=== PATIENT | female | born 1970 | race Caucasian/White ===

== ENCOUNTER 2018-11-12 23:05 | Observation (INO) | payer BC ==
--- NOTE | 2018-11-12 23:30 | ED ---
Chest Pain HPI - General Chief Complaint: Chest Pain Stated Complaint: Chest Pain Time Seen by Provider: 11/12/18 23:13 Source: patient, EMS, RN notes reviewed, old records reviewed Mode of arrival: EMS Limitations: no limitations - History of Present Illness Initial Comments: This is a 48-year-old female the ER for evaluation. Patient presented ER for evasive chest pain chest pain started just prior to arrival. Patient suffers from MS, no significant risk factors for heart disease no prior history of heart or chest pain. Patient states she is going through menopause currently does get some sweats. Her wound today and became is very diaphoretic no shortness of breath shortly after in express chest pain. Just feels much improved now than it was then. Left-sided chest pain right jaw. No significant shortness of breath MD Complaint: chest pain -: hour(s) Onset: during rest Pain Location: substernal Pain Radiation: none Severity: mild Severity scale (1-10): 3 Quality: tightness Consistency: constant Improves With: nothing Worsens With: exertion Context: recent illness Anginal Symptoms: dyspnea Treatments Prior to Arrival: none - Related Data Home Medications Medication Instructions Recorded Confirmed Aspirin EC [Ecotrin Low Dose] 81 mg PO DAILY 11/12/18 11/12/18 Baclofen [Lioresal] 10 mg PO QID 11/12/18 11/12/18 Cholecalciferol [Vitamin D3 (25 5,000 unit PO DAILY 11/12/18 11/12/18 Mcg = 1000 Iu)] Cyanocobalamin (Vitamin B-12) 1,000 mcg PO DAILY 11/12/18 11/12/18 [Vitamin B-12] Gabapentin 600 mg PO TID 11/12/18 11/12/18 Glatiramer Acetate [Copaxone] 40 mg SQ MOWEFR 11/12/18 11/12/18 Methylphenidate HCl 20 mg PO DAILY 11/12/18 11/12/18 [Methylphenidate HCl ER] Methylphenidate HCl [Ritalin] 10 mg PO BID 11/12/18 11/12/18 Oxybutynin Chloride [Ditropan XL] 10 mg PO DAILY 11/12/18 11/12/18 buPROPion XL [Wellbutrin XL] 150 mg PO DAILY 11/12/18 11/12/18 Allergies Allergy/AdvReac Type Severity Reaction Status Date / Time No Known Allergies Allergy Verified 11/12/18 23:25 Review of Systems ROS Statement: Those systems with pertinent positive or pertinent negative responses have been documented in the HPI. ROS Other: All systems not noted in ROS Statement are negative. 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 Mother Family Medical History: No Reported History Additional Family Medical History / Comment(s): Mother is healthy General Exam General appearance: alert, in no apparent distress Head exam: Present: atraumatic, normocephalic, normal inspection Eye exam: Present: normal appearance, EOMI. Absent: scleral icterus, conjunctival injection, periorbital swelling ENT exam: Present: normal exam, mucous membranes moist Neck exam: Present: normal inspection. Absent: tenderness, meningismus, lymphadenopathy Respiratory exam: Present: normal lung sounds bilaterally. Absent: respiratory distress, wheezes, rales, rhonchi, stridor Cardiovascular Exam: Present: regular rate, normal rhythm, normal heart sounds. Absent: systolic murmur, diastolic murmur, rubs, gallop, clicks GI/Abdominal exam: Present: soft, normal bowel sounds. Absent: distended, tenderness, guarding, rebound, rigid Extremities exam: Present: normal inspection, full ROM, normal capillary refill. Absent: tenderness, pedal edema, joint swelling, calf tenderness Back exam: Present: normal inspection Neurological exam: Present: alert, oriented X3, CN II-XII intact Psychiatric exam: Present: normal affect, normal mood Skin exam: Present: warm, dry, intact, normal color. Absent: rash Course Vital Signs 11/12/18 11/12/18 11/13/18 23:07 23:16 00:30 Temperature 98.1 F 98 F Pulse Rate 64 57 L Pulse Rate [ 67 [employer] ] Respiratory 18 16 Rate Blood Pressure 136/78 119/59 O2 Sat by Pulse 98 97 Oximetry 11/13/18 11/13/18 11/13/18 01:49 06:09 07:18 Temperature 98 F Pulse Rate 64 63 71 Pulse Rate [ [employer] ] Respiratory 16 16 16 Rate Blood Pressure 117/59 112/60 112/60 O2 Sat by Pulse 98 100 100 Oximetry 11/13/18 11/13/18 11/13/18 09:16 11:40 12:06 Temperature 98 F Pulse Rate 63 61 61 Pulse Rate [ [employer] ] Respiratory 16 18 18 Rate Blood Pressure 139/80 132/64 132/64 O2 Sat by Pulse 99 97 97 Oximetry - Reevaluation(s) Reevaluation #1: 11/13/18 01:13 Medical record is reviewed Reevaluation #2: 11/13/18 01:13 Patient still with episodic chest pain Chest Pain MDM - MDM 48 female the ER for evasive chest pain anterior chest pain. Patient has persistent chest pain currently episode was preceded by diaphoresis and radiati ng to right jaw. We'll admit for cardiac observation Critical Care Time Critical Care Time: Yes Total Critical Care Time: 31 Disposition Clinical Impression: Chest pain Disposition: ADMITTED IP TO THIS HOSP Condition: Undetermined Is patient prescribed a controlled substance at d/c from ED?: No
[2018-11-13 00:03] LABS: Basophils % (A) 1 %; Eosinophils # (A) 0.2 k/uL (0-0.7); Eosinophils % (A) 3 %; HCT 33.7 % (34.0-46.0); HGB 10.6 gm/dL (11.4-16.0); Lymphocytes # (A) 2.3 k/uL (1.0-4.8); Lymphocytes % (A) 33 %; MCH 28.5 pg (25.0-35.0); MCHC 31.4 g/dL (31.0-37.0); MCV 90.6 fL (80.0-100.0); Mean Platelet Volume 8.1; Monocytes # (A) 0.3 k/uL (0-1.0); Monocytes % (A) 4 %; Neutrophils # (A) 3.9 k/uL (1.3-7.7); Neutrophils % (A) 58 %; Platelet Count 235 k/uL (150-450); RBC 3.72 m/uL (3.80-5.40); RDW 13.6 % (11.5-15.5); WBC 6.8 k/uL (3.8-10.6)
--- NOTE | 2018-11-13 00:05 | XR ---
EXAM: XR Chest, 2 Views CLINICAL HISTORY: Chest pain TECHNIQUE: Frontal and lateral views of the chest. COMPARISON: None. FINDINGS: Lungs: Unremarkable. No consolidation. Pleural space: No pneumothorax. No pleural effusion. Heart: Cardiomediastinal silhouette is are unremarkable. Mediastinum: See above. Bones/joints: Osteopenia. Alignment of the thoracic spine is unremarkable. Comment the ribs are unremarkable. IMPRESSION: Osteopenia. No active disease.
[2018-11-13 00:16] LABS: Albumin 4.2 g/dL (3.5-5.0); Calcium 9.4 mg/dL (8.4-10.2); Magnesium 1.8 mg/dL (1.6-2.3); Potassium 3.9 mmol/L (3.5-5.1); Total Bilirubin 0.1 mg/dL (0.2-1.3); Total Protein 6.9 g/dL (6.3-8.2)
[2018-11-13 00:18] LABS: Partial Thromboplastin Time 25.3 sec (22.0-30.0); Prothrombin Time 10.3 sec (9.0-12.0)
[2018-11-13] MEDS ORDERED: ASPIRIN 81 MG PO STA (01:13)
[2018-11-13] MEDS ORDERED: NITROGLYCERIN SL TABS 0.4 MG TAB SUBLINGUAL PRN (01:13)
--- NOTE | 2018-11-13 01:51 | P.HPIM ---
History of Present Illness H&P Date: 11/13/18 Chief Complaint: Chest pain The patient is a 48-year-old female with a past medical history of multiple sclerosis, antiphospholipid syndrome and GERD that presents to the ER via EMS with chief complaint of chest pain. Apparently the patient began having substernal chest pressure at approximately 10 PM last evening after dinner while attempting to change into her pajamas. She describes 8 out of 10 sharp and and heavy sensation with radiation into her right neck and jaw with associated diaphoresis, flushes and nausea, she denied any shortness of breath lower extremity swelling axilla was normal nocturnal dyspnea. She proceeded to take 4 baby aspirin at home and on route was given nitroglycerin which relieved her discomfort. Patient denies feeling any sensations like this previously, she reports that was quite different from her MS hug or GERD flares. The patient is a former smoker with a 35+ pack year history that quit 2 years ago. In the ER she had a comprehensive workup, chest x-ray showed no acute disease only osteopenia, EKG showed sinus mechanism without any suggestion of acute ischemia. WBC count 6.8 hemoglobin 10.6 serum sodium 140 potassium 3.9 and creatinine 0.90. Troponin less than 0.012, NT proBNP 65. 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 History of Any Multi-Drug Resistant Organisms: None Reported Past Surgical History: Cholecystectomy, Hysterectomy, Joint Replacement, Tubal Ligation Past Psychological History: No Psychological Hx Reported Smoking Status: Former smoker Past Alcohol Use History: Occasional Past Drug Use History: None Reported Medications and Allergies Home Medications Medication Instructions Recorded Confirmed Type Aspirin EC [Ecotrin Low Dose] 81 mg PO DAILY 11/12/18 11/12/18 History Baclofen [Lioresal] 10 mg PO QID 11/12/18 11/12/18 History Cholecalciferol [Vitamin D3 (25 5,000 unit PO DAILY 11/12/18 11/12/18 History Mcg = 1000 Iu)] Cyanocobalamin (Vitamin B-12) 1,000 mcg PO DAILY 11/12/18 11/12/18 History [Vitamin B-12] Gabapentin 600 mg PO TID 11/12/18 11/12/18 History Glatiramer Acetate [Copaxone] 40 mg SQ MOWEFR 11/12/18 11/12/18 History Methylphenidate HCl 20 mg PO DAILY 11/12/18 11/12/18 History [Methylphenidate HCl ER] Methylphenidate HCl [Ritalin] 10 mg PO BID 11/12/18 11/12/18 History Oxybutynin Chloride [Ditropan XL] 10 mg PO DAILY 11/12/18 11/12/18 History buPROPion XL [Wellbutrin Xl] 150 mg PO DAILY 11/12/18 11/12/18 History Allergies Allergy/AdvReac Type Severity Reaction Status Date / Time No Known Allergies Allergy Verified 11/12/18 23:25 Physical Exam Vitals: Vital Signs Temp Pulse Pulse Resp BP Pulse Ox 11/13/18 00:30 98 F 57 L 16 119/59 97 11/12/18 23:16 67 11/12/18 23:07 98.1 F 64 18 136/78 98 Intake and Output 11/12/18 11/12/18 11/13/18 14:59 22:59 06:59 Other: Weight 69.853 kg Constitutional: No acute distress, conversant, pleasant Eyes: Anicteric sclerae, moist conjunctiva, no lid-lag, PERRLA ENMT: NC/AT,Oropharynx clear, no erythema, exudates Neck:Supple, FROM, no masses, or JVD, No carotid bruits; No thyromegaly Lungs: Clear to auscultation, Clear to percussion, Normal respiratory effort, no accessory muscle use Cardiovascular: Heart regular in rate and rhythm, No murmurs, gallops, or rubs no peripheral edema Abdominal: Soft Nontender, nom distended, no guarding, no rebound or rigidity, Normoactive bowel sounds No hepatomegaly, No splenomegaly, No palpable mass No abdominal wall hernia noted Skin: Normal temperature, tone, texture, turgor, No induration No subcutaneous nodules, No rash, lesions, No ulcers Extremities:No digital cyanosis No clubbing, Pedal pulses intact and symmetrical Radial pulses intact and symmetrical Normal gait and station, No calf tenderness Psychiatric: Alert and oriented to person, place and time, Appropriate affect Intact judgement Neuro: Muscles Strength 5/5 in all 4 extremities, Sensation to light touch grossly present throughout, Cranial nerves II-XII grossly intact. No focal sensory deficits Results CBC & Chem 7: 11/12/18 23:28 11/12/18 23:28 Labs: Abnormal Lab Results - Last 24 Hours (Table) 11/12/18 11/12/18 Range/Units 23:28 23:28 RBC 3.72 L (3.80-5.40) m/uL Hgb 10.6 L (11.4-16.0) gm/dL Hct 33.7 L (34.0-46.0) % Total Bilirubin 0.1 L (0.2-1.3) mg/dL Assessment and Plan (1) Chest pain Current Visit: Yes Status: Acute Code(s): R07.9 - CHEST PAIN, UNSPECIFIED SNOMED Code(s): 06305815 (2) Multiple sclerosis Current Visit: Yes Status: Chronic Code(s): G35 - MULTIPLE SCLEROSIS SNOMED Code(s): 00554103 (3) Antiphospholipid syndrome Current Visit: Yes Status: Chronic Code(s): D68.61 - ANTIPHOSPHOLIPID SYNDROME SNOMED Code(s): 90861823 (4) Mild anemia Current Visit: Yes Status: Acute Code(s): D64.9 - ANEMIA, UNSPECIFIED SNOMED Code(s): 729810254 (5) GERD (gastroesophageal reflux disease) Current Visit: Yes Status: Chronic Code(s): K21.9 - GASTRO-ESOPHAGEAL REFLUX DISEASE WITHOUT ESOPHAGITIS SNOMED Code(s): 657905173 Plan: The patient placed in observation anticipate a less than 2 midnight stay to rule out ACS after presenting with chest pain, initial workup with EKG and troponins are negative for any suggestion of acute ischemia, we'll continue to trend cardiac enzymes, order echocardiogram and consult cardiology for further recommendations. CODE STATUS: Full code Anticipated discharge: 1-[address]: Home Discussed plan of care with; patient and her Prophylaxis SCDs
[2018-11-13 06:31] LABS: Cholesterol 154 mg/dL (<200); HDL Cholesterol 44 mg/dL (40-60); LDL Cholesterol,Calculated 73 mg/dL (0-99); Triglycerides 187 mg/dL (<150)
[2018-11-13] MEDS: SODIUM CHLORIDE 0.9% 1,000 ML IV SCH ×2 (07:00→14:29)
[2018-11-13] MEDS ORDERED: OXYBUTYNIN 10 MG TAB.ER.24 PO SCH (09:00)
[2018-11-13] MEDS ORDERED: CHOLECALCIFEROL 1,000 UNIT TAB PO SCH (09:00)
[2018-11-13] MEDS ORDERED: CYANOCOBALAMIN 500 MCG TAB PO SCH (09:00)
[2018-11-13] MEDS ORDERED: Glatiramer Acetate [Copaxone] SQ SCH (09:00)
[2018-11-13] MEDS ORDERED: METOPROLOL TARTRATE 25 MG TAB PO SCH (09:00)
[2018-11-13] MEDS ORDERED: buPROPion XL 150 MG TAB.ER.24H PO SCH (09:00)
[2018-11-13] MEDS: GABAPENTIN 300 MG CAP PO SCH ×2 (09:12→16:23)
[2018-11-13] MEDS: BACLOFEN 10 MG TAB PO SCH ×3 (09:13→16:33)
[2018-11-13] MEDS ORDERED: SODIUM CHLORIDE 0.9% 1,000 ML in EMPTY BAG 1 BAG IV ONE (10:41)
[2018-11-13] MEDS ORDERED: ALPRAZolam 0.5 MG TAB PO PRN (10:41)
[2018-11-13] MEDS ORDERED: ALPRAZolam 0.25 MG TAB PO PRN (10:41)
[2018-11-13] MEDS ORDERED: ATORVASTATIN 80 MG TAB PO STA (10:41)
--- NOTE | 2018-11-13 11:26 | ECHOF ---
Referral Reason:chest pain MEASUREMENTS -------- HEIGHT: 165.1 cm WEIGHT: 74.4 kg BP: 112/60 RVIDd: 3.1 cm (< 3.3) IVSd: 0.8 cm (0.6 - 1.1) LVIDd: 4.3 cm (3.9 - 5.3) LVPWd: 0.9 cm (0.6 - 1.1) IVSs: 1.4 cm LVIDs: 3.0 cm LVPWs: 1.6 cm LA Diam: 3.2 cm (2.7 - 3.8) LAESV Index (A-L): 27.67 ml/m Ao Diam: 2.9 cm (2.0 - 3.7) AV Cusp: 1.9 cm (1.5 - 2.6) MV EXCURSION: 18.612 mm (> 18.000) MV EF SLOPE: 68 mm/s (70 - 150) EPSS: 0.3 cm MV E Onel: 0.75 m/s MV DecT: 260 ms MV A Onel: 0.69 m/s MV E/A Ratio: 1.09 RAP: 5.00 mmHg RVSP: 24.33 mmHg TAPSE: 22.49 mm FINDINGS -------- Resting bradycardia (HR<60bpm). This was a technically good study. The left ventricular size is normal. Left ventricular wall thickness is normal. Overall left vent ricular systolic function is normal with, an EF between 60 - 65 %. The diastolic filling pattern is normal for the age of the patient 9.57. The right ventricle is normal in size. Normal LA size by volume 22+/-6 ml/m2. The right atrium is normal in size. Interatrial and interventricular septum intact. The aortic valve is trileaflet and appears structurally normal. The mitral valve is normal. Mild tricuspid regurgitation present. Right ventricular systolic pressure is normal at < 35 mmHg. Trace/mild (physiologic) pulmonic regurgitation. The aortic root size is normal. Normal inferior vena cava with normal inspiratory collapse consistent with estimated right atrial pre ssure of 5 mmHg. There is no pericardial effusion. CONCLUSIONS -------- 1. Resting bradycardia (HR<60bpm). 2. This was a technically good study. 3. The left ventricular size is normal. 4. Left ventricular wall thickness is normal. 5. Overall left ventricular systolic function is normal with, an EF between 60 - 65 %. 6. The diastolic filling pattern is normal for the age of the patient 9.57 7. The right ventricle is normal in size. 8. Normal LA size by volume 22+/-6 ml/m2. 9. The right atrium is normal in size. 10. Interatrial and interventricular septum intact. 11. The aortic valve is trileaflet and appears structurally normal. 12. The mitral valve is normal. 13. Mild tricuspid regurgitation present. 14. Right ventricular systolic pressure is normal at < 35 mmHg. 15. Trace/mild (physiologic) pulmonic regurgitation. 16. The aortic root size is normal. 17. Normal inferior vena cava with normal inspiratory collapse consistent with estimated right atrial pressure of 5 mmHg. 18. There is no pericardial effusion. CHECKROOM CHIEF: Roma Mccoy RDCS
[2018-11-13] MEDS ORDERED: IV FLUID CONTINUATION 1,000 ML IV ONE (12:40)
--- NOTE | 2018-11-13 12:45 | P.CRDCN ---
History of Present Illness History of present illness: This is a pleasant 48-year-old female past medical history significant for multiple sclerosis, gastroesophageal reflux disease and chronic pain syndrome. She has a former smoker she quit 2 years ago. We have been asked to see her in consultation secondary to chest discomfort. She denies prior history of coronary artery disease and does not follow with a roundsman for any reason. She states yesterday she had a couple of different episodes of symptoms starting first in the afternoon with feeling quite lightheaded. She did not feel like the room was spinning she just felt she needed to brace herself. This episode was very brief and seemed to pass on its own. In the early evening she was walking through her house he became acutely diaphoretic with no specific cause. She was just walking at a normal pace down the hallway. The evening while she was laying down and referred bed she started feeling a discomfort in the left precordial region described as a heavy pressure sensation that radiated up into the jaw. The time of this started she was changing and examined getting ready for bed. She took 4 baby aspirin and called EMS. Upon arrival she was continuing to have chest discomfort in the gave her sublingual nitroglycerin which did relieve the intensity but she continues to feel pressure in the chest. EKG reveals sinus mechanism heart rate of 64 with T-wave inversion in the anterior leads. No old EKG for comparison. Chest x-ray is negative for an acute cardiopulmonary process. Laboratory data reviewed, WBC 6.8, hemoglobin 10.6, platelets 235, d-dimer 0.27, sodium 140, potassium 3.9, creatinine 0.8, magnesium 1.8, cardiac enzymes negative 3, proBNP 65, LDL 73. Current cardiac medications include aspirin 81 mg daily. At the time of my exam: CONSTITUTIONAL: Denies fever. Denies chills. EYES: Denies blurred vision. Denies vision changes. Denies eye pain. EARS, NOSE, MOUTH & THROAT: Denies headache. Denies sore throat. Denies ear pain. CARDIOVASCULAR: Complains of chest pain. Denies shortness of breath. Denies orthopnea. Denies PND. Denies palpitations. RESPIRATORY: Denies cough. GASTROINTESTINAL: Denies abdominal pain. Denies diarrhea. Denies constipation. Denies nausea. Denies vomiting. MUSCULOSKELETAL: Denies myalgias. INTEGUMENTARY: Denies pruitis. Denies rash. NEUROLOGIC: Denies numbness. Denies tingling. Denies weakness. PSYCHIATRIC: Denies anxiety. Denies depression. ENDOCRINE: Denies fatigue. Denies weight change. Denies polydipsia. Denies polyurina. GENITOURINARY: Denies burning, hematuria or urgency with micturation. HEMATOLOGIC: Denies history of anemia. Denies bleeding. Blood pressure 132/64 heart rate 61 afebrile maintaining oxygen saturation on room air GENERAL: This is a 48-year-old female in no apparent distress at the time of my examination. HEENT: Head is atraumatic, normocephalic. Pupils are equal, round. Sclerae anicteric. Conjunctivae are clear. Mucous membranes of the mouth are moist. Neck is supple. There is no jugular venous distention. No carotid bruit is heard. LUNGS: Clear to auscultation no wheezes, rales or rhonchi. No chest wall tenderness is noted on palpation or with deep breathing. HEART: Regular rate and rhythm without murmurs, rubs or gallops. S1 and S2 heard. ABDOMEN: Soft, nontender. Bowel sounds are heard. No organomegaly noted. EXTREMITIES: No evidence of peripheral edema and no calf tenderness noted. VASCULAR: Radial and dorsalis pedis pulses palpated, no evidence of clubbing. NEUROLOGIC: Patient is awake, alert and oriented x3. ASSESSMENT Unstable angina with EKG abnormalities no old for comparison History of multiple sclerosis PLAN Recommend proceeding with cardiac catheterization to assess for underlying coronary artery disease.I have discussed the risks, benefits and alternative therapies for the above-mentioned procedure and for both sedation/analgesia as well as necessary blood product administration, if indicated, as they pertain to this patient. The patient has indicated understanding and acceptance of the risks and procedures discussed. Questions have been answered appropriately and she is agreeable to move forward with the above stated procedure. Echocardiogram has been ordered and will be reviewed prior to the procedure. Thank you kindly for this consultation. Nurse Practitioner note has been reviewed, I agree with a documented findings and plan of care. Patient was seen and examined. Past Medical History Past Medical History: GERD/Reflux, Hearing Disorder / Deafness, Musculoskeletal Disorder Additional Past Medical History / Comment(s): Sticky Blood (APS), acoustic neuroma/treated by gamma knife-has had "noise" in R ear ever since, [place] bilaterally, multiple sclerosis, chronic pain-generalized, extreme fatigue, alternating diarrhea/constipation, UTI in past, current "hot flashes", History of Any Multi-Drug Resistant Organisms: None Reported Past Surgical History: Cholecystectomy, Hysterectomy, Orthopedic Surgery, Tubal Ligation Additional Past Surgical History / Comment(s): Gamma knife for acoustic neuroma, L knee arthroscopy. Past Anesthesia/Blood Transfusion Reactions: No Reported Reaction, Motion Sickness Smoking Status: Former smoker - Past Family History Father Family Medical History: Cancer Additional Family Medical History / Comment(s): Father from complications of lymphoma at the age of 57yrs. Mother Family Medical History: No Reported History Additional Family Medical History / Comment(s): Mother is healthy Medications and Allergies Home Medications Medication Instructions Recorded Confirmed Type Aspirin EC [Ecotrin Low Dose] 81 mg PO DAILY 11/12/18 11/12/18 History Baclofen [Lioresal] 10 mg PO QID 11/12/18 11/12/18 History Cholecalciferol [Vitamin D3 (25 5,000 unit PO DAILY 11/12/18 11/12/18 History Mcg = 1000 Iu)] Cyanocobalamin (Vitamin B-12) 1,000 mcg PO DAILY 11/12/18 11/12/18 History [Vitamin B-12] Gabapentin 600 mg PO TID 11/12/18 11/12/18 History Glatiramer Acetate [Copaxone] 40 mg SQ MOWEFR 11/12/18 11/12/18 History Methylphenidate HCl 20 mg PO DAILY 11/12/18 11/12/18 History [Methylphenidate HCl ER] Methylphenidate HCl [Ritalin] 10 mg PO BID 11/12/18 11/12/18 History Oxybutynin Chloride [Ditropan XL] 10 mg PO DAILY 11/12/18 11/12/18 History buPROPion XL [Wellbutrin Xl] 150 mg PO DAILY 11/12/18 11/12/18 History Allergies Allergy/AdvReac Type Severity Reaction Status Date / Time No Known Allergies Allergy Verified 11/12/18 23:25 Physical Exam Vitals: Vital Signs Temp Pulse Pulse Resp BP Pulse Ox 11/13/18 09:16 63 16 139/80 99 11/13/18 07:18 71 16 112/60 100 11/13/18 06:09 98 F 63 16 112/60 100 11/13/18 01:49 64 16 117/59 98 11/13/18 00:30 98 F 57 L 16 119/59 97 11/12/18 23:16 67 11/12/18 23:07 98.1 F 64 18 136/78 98 Intake and Output 11/12/18 11/13/18 11/13/18 22:59 06:59 14:59 Other: Weight 69.853 kg Results 11/12/18 23:28 11/12/18 23:28 Cardiac Enzymes 11/12/18 11/12/18 11/13/18 Range/Units 23:28 23:28 05:51 AST 24 (14-36) U/L Troponin I <0.012 <0.012 (0.000-0.034) ng/mL Coagulation 11/12/18 Range/Units 23:28 PT 10.3 (9.0-12.0) sec APTT 25.3 (22.0-30.0) sec Lipids 11/13/18 Range/Units 05:51 Triglycerides 187 H (<150) mg/dL Cholesterol 154 (<200) mg/dL HDL Cholesterol 44 (40-60) mg/dL CBC 11/12/18 Range/Units 23:28 WBC 6.8 (3.8-10.6) k/uL RBC 3.72 L (3.80-5.40) m/uL Hgb 10.6 L (11.4-16.0) gm/dL Hct 33.7 L (34.0-46.0) % Plt Count 235 (150-450) k/uL Comprehensive Metabolic Panel 11/12/18 Range/Units 23:28 Sodium 140 (137-145) mmol/L Potassium 3.9 (3.5-5.1) mmol/L Chloride 103 (98-107) mmol/L Carbon Dioxide 26 (22-30) mmol/L BUN 17 (7-17) mg/dL Creatinine 0.90 (0.52-1.04) mg/dL Glucose 98 (74-99) mg/dL Calcium 9.4 (8.4-10.2) mg/dL AST 24 (14-36) U/L ALT 26 (9-52) U/L Alkaline Phosphatase 63 (38-126) U/L Total Protein 6.9 (6.3-8.2) g/dL Albumin 4.2 (3.5-5.0) g/dL Current Medications Generic Name Dose Route Start Last Admin Trade Name Freq PRN Reason Stop Dose Admin Alprazolam 0.25 mg 11/13/18 10:41 Xanax PO Q6HR PRN Mild Anxiety Alprazolam 0.5 mg 11/13/18 10:41 Xanax PO Q6HR PRN Moderate Anxiety Aspirin 81 mg 11/14/18 09:00 Aspirin PO DAILY [facility] Baclofen 10 mg 11/13/18 09:00 11/13/18 09:13 Lioresal PO 10 mg QID MARLENE Administration Bupropion HCl 150 mg 11/13/18 09:00 11/13/18 09:24 Wellbutrin Xl PO 150 mg DAILY MARLENE Administration Cholecalciferol 5,000 unit 11/13/18 09:00 11/13/18 09:11 Vitamin D3 (25 Mcg = 1000 Iu) PO 5,000 unit DAILY MARLENE Administration Cyanocobalamin 1,000 mcg 11/13/18 09:00 11/13/18 09:15 Vitamin B-12 PO Not Given DAILY MARLENE Gabapentin 600 mg 11/13/18 09:00 11/13/18 09:12 Neurontin PO 600 mg TID MARLENE Administration Sodium Chloride 1,000 mls @ 100 mls/hr 11/13/18 01:15 11/13/18 07:00 Saline 0.9% IV 100 mls/hr .Q10H MARLENE Administration Sodium Chloride 1,000 ml/ IV 1,000 mls @ 69.853 mls/hr 11/13/18 10:41 Solution IV 11/14/18 00:59 .[id number] ONE 1 ML/KG/HR Metoprolol Tartrate 25 mg 11/13/18 09:00 11/13/18 09:14 Lopressor PO Not Given BID MARLENE Nitroglycerin 0.4 mg 11/13/18 01:13 Nitrostat SUBLINGUAL Q5M PRN Chest Pain Glatiramer Acetate [ 40 mg 11/13/18 09:00 11/13/18 09:15 Copaxone] SQ Not Given [id number] MARLENE Oxybutynin Chloride 10 mg 11/13/18 09:00 11/13/18 09:24 Ditropan Xl PO 10 mg DAILY MARLENE Administration Intake and Output 11/12/18 11/13/18 11/13/18 22:59 06:59 14:59 Other: Weight 69.853 kg 11/12/18 23:28 11/12/18 23:28
[2018-11-13] MEDS: MIDAZOLAM PF (FBP) 2 MG/2 ML VIAL IVP ONE ×2 (12:50→12:55)
[2018-11-13] MEDS ORDERED: fentaNYL (PF) 50 MCG/ML 2 ML AMP IVP ONE (12:50)
[2018-11-13] MEDS ORDERED: LIDOCAINE 1% INJ 10MG/ML (20 ML MDV) SQ ONE (12:55)
[2018-11-13] MEDS ORDERED: IOPAMIDOL-370 125ML BTL INJ ONE (13:15)
[2018-11-13] MEDS ORDERED: RX INFO: IV CONTRAST WAS GIVEN 1 EACH MISC MISCELLANE PRN (14:09)
[2018-11-13 14:52] LABS: Iron Saturation 11.81 (12.00-45.00)
[2018-11-13 15:01] LABS: Ferritin 50.7 ng/mL (10.0-291.0)
[2018-11-13 15:26] VITALS: RESP 18
[2018-11-13] MEDS ORDERED: HYDROcodone/APAP 5-325MG 1 EACH TAB PO STA (17:56)
[2018-11-13 19:29] VITALS: BP 99/62; PULSE 72; TEMP 97.8
--- NOTE | 2018-11-13 19:31 | CC ---
CARDIAC CATHETERIZATION REPORT Mrs. Yin is a 48-year-old female who came to the emergency room with a complaint suggestive of unstable angina syndrome. EKG showed T-wave inversions in the anterior leads. Cardiac enzymes were negative. In view of the history suggestive of unstable angina and abnormal EKG, the patient was recommended to have a cardiac catheterization for definitive diagnosis. PROCEDURE DESCRIPTION: The right groin was prepped and draped in the usual manner and the skin was infiltrated with 2% Xylocaine. The right femoral artery was entered using Seldinger technique and micropuncture needle under ultrasound guidance. A #6-Upper Sorbian sheath was placed in. Selective coronary angiography was then performed in multiple projections. Left ventricular pressures were obtained. Sheath was removed and good hemostasis was achieved with the use of manual compression. Moderate sedation was used. Total sedation time was 15 minutes. HEMODYNAMICS: The left ventricular end-diastolic pressure was 8-10 mmHg prior to angiography. No gradient is noted across the aortic valve. SELECTIVE CORONARY ANGIOGRAPHY: Left main coronary artery is normal and patent. LAD is a good-caliber blood vessel and gives rise to a good-sized diagonal branch. LAD and its branches are normal. Circumflex coronary artery is nondominant in distribution and gives rise to the obtuse marginal branch. Circumflex coronary artery and its branches are normal. Right coronary artery is normal and gives rise to the posterior descending artery. Right coronary artery and its branches are normal. FINAL IMPRESSION: This study reveals normal coronary arteries. Left ventricular end-diastolic pressure is normal. RECOMMENDATIONS: Continue medical treatment. MMODL / IJN: [id number] /
--- NOTE | 2018-11-13 20:29 | P.DS ---
Providers Date of admission: 11/13/18 01:14 Expected date of discharge: 11/13/18 Attending physician: Jitendra Ortega MD Consults: 11/13/18 01:13 Consult Physician Urgent Consulting Provider: Alvarez Gomez Consult Reason/Comments: cp Do you want consulting provider notified?: Yes Primary care physician: Physician Nonstaff Hospital Course: Discharge Diagnosis: Noncardiac chest pain Multiple sclerosis Anemia, mild Fe deficiency - unknown baseline Antiphospholipid syndrome Acoustic neuroma GERD Hospital Course: Patient is a 48-year-old female past medical history of multiple falls sclerosis out of the [place], antiphospholipid syndrome, GERD and prior acoustic neuroma who presented to the ER with complaints of chest pain. In the ER she underwent an extensive evaluation. On arrival her vital signs within normal limits. Initial laboratory analysis revealed a low hemoglobin. Further analysis showed mild iron deficiency anemia. Initial troponin was negative. EKG did not show any signs of ischemia. She was admitted for chest pain off evaluation. She was seen by cardiology. Echocardiogram was performed which was within normal limits. Remainder for troponins were negative. She ultimately underwent cardiac catheterization on 11/13 which did not show any signs of occlusive coronary artery disease. Cholesterol profile is within normal limits. Chest underwent a d-dimer to exclude pulmonary embolism this came back normal at 0.27. She was determined stable for discharge home for further outpatient evaluation. She'll follow up with Dr. Jordan in 1 week for groin check. She'll follow-up with her primary care provider in 2-3 days for further outpatient evaluation of chest pain. Patient seen and examined at bedside. Complains of some groin pain after the procedure. No nausea or vomiting. No continued chest pain. No shortness of breath. She does not feel so this is GERD. She did not eat anything new or trying new medications. She also does not feel as if this was her MS hug. Vital signs reviewed and stable. General: non toxic, no distress, appears at stated age Derm: Right groin without ecchymoses, no swelling, warm, dry Head: atraumatic, normocephalic, symmetric Eyes: EOMI, no lid lag, anicteric sclera Mouth: no lip lesion, mucus membranes moist Cardiovascular: S1S2 reg, no murmur, positive posterior tibial pulse bilateral, Lungs: CTA bilateral, no rhonchi, no rales , no accessory muscle use Abdominal: soft, nontender to palpation, no guarding, no appreciable organomegaly Ext: no gross muscle atrophy, no edema, no contractures Neuro: CN II-XI grossly intact, no focal neuro deficits Psych: Alert, oriented, appropriate affect A total of 25 minutes of time were spent preparing this complex discharge summary . Pertinent Studies: Echocardiogram-ejection fraction 60-65% Chest [id number] no active disease Cardiac catheterization-normal coronary arteries Patient Condition at Discharge: Good Plan - Discharge Summary Discharge Rx Participant: No New Discharge Prescriptions: Continue RX: Methylphenidate HCl [Methylphenidate HCl ER] 20 mg PO DAILY RX: Methylphenidate HCl [Ritalin] 10 mg PO BID RX: Gabapentin 600 mg PO TID RX: Baclofen [Lioresal] 10 mg PO QID RX: buPROPion XL [Wellbutrin XL] 150 mg PO DAILY RX: Glatiramer Acetate [Copaxone] 40 mg SQ MOWEFR RX: Cholecalciferol [Vitamin D3 (25 Mcg = 1000 Iu)] 5,000 unit PO DAILY RX: Aspirin EC [Ecotrin Low Dose] 81 mg PO DAILY RX: Cyanocobalamin (Vitamin B-12) [Vitamin B-12] 1,000 mcg PO DAILY RX: Oxybutynin Chloride [Ditropan XL] 10 mg PO DAILY Discharge Medication List RX: Aspirin EC [Ecotrin Low Dose] 81 mg PO DAILY 11/12/18 [History] RX: Baclofen [Lioresal] 10 mg PO QID 11/12/18 [History] RX: Cholecalciferol [Vitamin D3 (25 Mcg = 1000 Iu)] 5,000 unit PO DAILY 11/12/18 [History] RX: Cyanocobalamin (Vitamin B-12) [Vitamin B-12] 1,000 mcg PO DAILY 11/12/18 [History] RX: Gabapentin 600 mg PO TID 11/12/18 [History] RX: Glatiramer Acetate [Copaxone] 40 mg SQ MOWEFR 11/12/18 [History] RX: Methylphenidate HCl [Methylphenidate HCl ER] 20 mg PO DAILY 11/12/18 [History] RX: Methylphenidate HCl [Ritalin] 10 mg PO BID 11/12/18 [History] RX: Oxybutynin Chloride [Ditropan XL] 10 mg PO DAILY 11/12/18 [History] RX: buPROPion XL [Wellbutrin XL] 150 mg PO DAILY 11/12/18 [History] Follow up Appointment(s)/Referral(s): Nonstaff,Physician [Primary Care Provider] - 1-2 days Froylan Murphy MD [STAFF PHYSICIAN] - 1 Week (groin check) Patient Instructions/Handouts: Chest Pain (ED), Left Heart Catheterization (DC) Activity/Diet/Wound Care/Special Instructions: Activity: as tolerated Diet: heart healthy Discharge Disposition: HOME SELF-CARE
[2018-11-14] MEDS ORDERED: ASPIRIN 81 MG PO SCH (09:00)
[2018-11-14] MEDS ORDERED: ASPIRIN 325 MG TAB PO SCH (09:00)
== END 2018-11-13 20:16 | disposition home or self-care (01) ==
LOC: EC 23:05 → 1SOBS 11-13 01:14
PROVIDERS: ADMIT Family Medicine; ATTEND Family Medicine
DX: R07.89 Other chest pain (principal); G35 Multiple sclerosis; D50.9 Iron deficiency anemia, unspecified; R61 Generalized hyperhidrosis; D68.61 Antiphospholipid syndrome; K21.9 Gastro-esophageal reflux disease without esophagitis; R94.31 Abnormal electrocardiogram [ECG] [EKG]; M85.80 Other specified disorders of bone density and structure, unspecified site; D64.9 Anemia, unspecified; G89.4 Chronic pain syndrome; K59.00 Constipation, unspecified; R53.83 Other fatigue; R19.7 Diarrhea, unspecified; R42 Dizziness and giddiness; H91.90 Unspecified hearing loss, unspecified ear; N95.1 Menopausal and female climacteric states; Z79.82 Long term (current) use of aspirin; Z79.899 Other long term (current) drug therapy; Z87.891 Personal history of nicotine dependence; Z86.018 Personal history of other benign neoplasm; Z90.49 Acquired absence of other specified parts of digestive tract; Z90.710 Acquired absence of both cervix and uterus; Z96.60 Presence of unspecified orthopedic joint implant; Z87.440 Personal history of urinary (tract) infections; Z80.7 Family history of other malignant neoplasms of lymphoid, hematopoietic and related tissues
CPT/HCPCS: 99152; 99291; 36415; 93005 ×2; 93306; 93458; 76937; 85379; 83880; 80061; 80053; 82728; 83540; 83550; 83690; 83735; 84484 ×2; 85025; 85610; 85730; 71046; G0378; C1894; C1769 ×2; J2001; J3010; Q9967; J2250